=== PATIENT | male | born 1965 | race Caucasian/White ===

== ENCOUNTER 2019-06-07 02:09 | Emergency (ER) | payer BC, OTHER ==
[~2019-06-07 02:09] MED LIST: NO ROUTINE MEDS
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
[2019-06-07] MEDS ORDERED: NS(*) 0.9% 1000 ML BAG 1,000 ML IV ONE (02:40)
[2019-06-07] MEDS ORDERED: fentaNYL CITR 100 MCG/2 ML AMP IVP ONE (02:40)
[2019-06-07] MEDS ORDERED: DIPHTH/TETANUS/ACEL. PERTUSSIS IM ONLY ONE (02:40)
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
[2019-06-07 04:30] VITALS: BP 132/81
[2019-06-07] MEDS ORDERED: IBUPROFEN 800 MG TAB PO ONE (04:30)
[2019-06-07] MEDS ORDERED: CEPHALEXIN 500 MG CAP TH 2 CAP/BOTTLE PO ONE (04:30)
[2019-06-07] MEDS ORDERED: ACET/HYDROC 5/325MG TH ER ONLY 2 TAB/BOTTLE PO ONE (04:30)
[2019-06-07] MEDS ORDERED: APAP/HYDROCODONE 325/5 TAB PO ONE (04:30)
[2019-06-07] MEDS ORDERED: CEPH500C24 PO (04:31)
[2019-06-07] MEDS ORDERED: LOR5/325 PO (04:31)
== END 2019-06-07 05:10 | disposition home or self-care (01) ==
LOC: ER 02:27
DX: S42.031A Displaced fracture of lateral end of right clavicle, initial encounter for closed fracture (principal); S80.811A Abrasion, right lower leg, initial encounter; S40.811A Abrasion of right upper arm, initial encounter; V86.55XA Driver of 3- or 4- wheeled all-terrain vehicle (ATV) injured in nontraffic accident, initial encounter; Y99.8 Other external cause status; Z23 Encounter for immunization
CPT/HCPCS: 71045; 73030; 90471; 90715; 96361; 96374; 99284; A4565; J3010; J7030; L0172